=== PATIENT | male | born 1960 | race Caucasian/White ===

== ENCOUNTER → 2023-12-05 17:34 | Outpatient (REF) | payer OTHER, SELFPAY | LOC: RCS 17:34 | PROVIDERS: ATTENDING PHYSICIAN Physician Assistant; FAMILY PHYSICIAN Physician Assistant Medical | DX: I48.0 Paroxysmal atrial fibrillation (principal); I10 Essential (primary) hypertension; R06.09 Other forms of dyspnea | CPT/HCPCS: 93306 ==

== ENCOUNTER 2024-03-20 22:07 | Emergency (ER) | payer OTHER, SELFPAY ==
[2024-03-20 22:13] VITALS: BP 153/82
[2024-03-20 22:30] LABS: % Basophils 0.6 % (0-2); % Immature Granulocytes 0.2 % (0-0.5); % Lymphocytes 15.2 % (20.5-51.1); % Monocytes 7.4 % (1.7-9.3); % Neutrophils 75.6 % (42.2-75.2); Absolute Basophils 0.1 10^3/uL (0-0.2); Absolute Eosinophils 0.1 10^3/uL (0-0.7); Absolute Lymphocytes 1.3 10^3/uL (1.2-3.4); Absolute Monocytes 0.7 10^3/uL (0.1-0.6); Absolute Neutrophils 6.7 10^3/uL (1.4-6.5); Hematocrit 41.4 % (39.0-52.0); Hemoglobin 14.3 g/dL (13.0-18.0); Mean Corp Hgb Conc. 34.5 g/dL (33.0-37.0); Mean Corpuscular Volume 89.6 fL (80.0-94.0); Mean Platelet Volume 10.8 fL (7.4-10.4); Nucleated Red Blood Cells % 0 % (-); Platelet Count 166 10^3/uL (130-400); Red Blood Cell Count 4.62 10^6/uL (4.70-6.10); Red Cell Dist. Width 12.3 % (11.5-14.5); White Blood Cell Count 8.8 10^3/uL (4.8-10.8)
[2024-03-20 22:44] LABS: ALT (SGPT) 22 U/L (0-50); AST (SGOT) 27 U/L (17-59); Albumin 4.3 g/dl (3.5-5.0); Alkaline Phosphatase 88 U/L (38-126); Blood Urea Nitrogen 25 mg/dl (9-20); Calcium 9.4 mg/dl (8.4-10.2); Carbon Dioxide 30 mmol/L (22-30); Chloride 102 mmol/L (98-107); Glucose 121 mg/dl (70-99); Sodium 139 mmol/L (135-145); Total Bilirubin 1.2 mg/dl (0.2-1.3); Total Protein 6.8 g/dl (6.3-8.2); eGFR > 60.00
[2024-03-20 22:45] LABS: Lipase 136 U/L (23-300)
[2024-03-20 22:49] LABS: Urine Albumin Negative (Neg - Trace); Urine Bilirubin Negative (Negative); Urine Character Clear (Clear); Urine Color Yellow; Urine Glucose Negative (Negative); Urine Ketone Trace (Negative); Urine Leukocyte Trace (Negative); Urine Nitrite Negative (Negative); Urine Occult Blood Negative (Negative); Urine Specific Gravity 1.015 (<1.030); Urine Urobilinogen 1+ (Neg - 1+); Urine pH 6.5 (5.0-9.0)
[2024-03-20 23:04] LABS: Urine Mucus Few
[2024-03-20 23:05] LABS: Urine Bacteria Few (Negative)
[2024-03-20] MEDS: NSS 1000 IV (23:46)
--- NOTE | 2024-03-21 01:42 | ED.GENMED ---
History of Present Illness
General
Chief Complaint: Abdominal Pain
Source: patient
Exam Limitations: none
Time Seen by Provider: 03/20/24 22:57
History of Present Illness
History of Present Illness:
This is a 63 year old male that comes in with c/o left lower groin/LLQ pain. State that after dinner at 7pm he started with this pain in the left groin area. States that this was just not going away. States that he did have 2 BM when he got home
from work. States that the pain does move down slightly into the testicle. States that he was nauseated. Denies any fever, chills, chest pain, SOB, vomiting, diarrhea, headache, dizziness, urinary burning.
Past History
Past History
ED Past Medical History: Arrthythmia (Atrial fib), Hypercholesterolemia and Other (Back pain, Pancreatitis, )
ED Past Surgical History: Cardiac (Ablation), Orthopedic (Knee surgery) and Other (Hernia repair)
Social History
Tobacco: Non-smoker
Alcohol: None
Personal:
Living: with family
Review of Systems
Review of Systems
All Other Systems: ROS reviewed and negative except as documented in HPI and ROS
Constitutional: Reports no symptoms; Denies fever or chills
EENT: Reports no symptoms
Respiratory: Reports no symptoms; Denies cough or trouble breathing
Cardiac: Reports no symptoms; Denies chest pain
ABD/GI: Reports abdominal pain and nausea; Denies vomiting or diarrhea
: Reports no symptoms; Denies dysuria, frequency or urgency
Musculoskeletal: Reports no symptoms
Skin: Reports no symptoms
Neurological: Reports no symptoms; Denies dizzy or headache
Psychiatric: Reports no symptoms
Phy Exam
General Physical Exam
General Presentation: no apparent distress
General age: appears stated age
General Skin: warm and dry
General Habitus: normal
General Mental: alert
General Hydration: dry mucous membranes
ENT Exam
ENT Exam: TM's normal, pharynx normal and neck supple
Eye Exam
Eye Exam: EOMI
Cardiovascular Exam
Cardiovascular Exam: regular rate/rhythm, no edema, no murmur and normal peripheral pulses
Pulmonary Exam
Pulmonary Exam: lungs clear, no respiratory distress, no rales, chest non tender, no crackles, no rhonchi, no wheezing and no cough
Gastrointestinal Exam
Gastrointestinal Exam: normal bowel sounds, soft, no organomegaly, no pulsatile mass, non distended and tender (LLQ/ groin tenderness with palpation, )
Musculoskeletal Exam
Musculoskeletal Exam: full ROM and no edema
Skin Exam
Skin Exam: normal color, warm/dry, no rash and no petechia
Psychiatric Exam
Psychiatric Exam: normal mood/affect
Course
Orders/Labs/Results
Orders:
Orders
03/20/24 22:24
Complete Blood Count/With Diff Urgent
Comprehensive Metabolic Panel Urgent
Lipase Urgent
03/20/24 22:45
Urinalysis Reflex To Culture Urgent
Date Specimen was Collected: 03/20/24
Time Specimen was Collected: 22:18
Urine Microscopic Reflex Cult Urgent
03/20/24 23:31
0.9% Sodium Chloride 1000 ml [Nss] 1,000 ml IV BOLUS
03/20/24 23:46
Lactic Acid Urgent
03/21/24 01:15
CT Abd/pelvis W Iv Cont Urgent
Reason For Exam: left groin pain
Abnormal Lab Results
03/20/24 03/20/24
22:24 22:45
RBC 4.62 L 10^6/uL
(4.70-6.10)
MPV 10.8 H fL
(7.4-10.4)
Absolute Neuts (auto) 6.7 H 10^3/uL
(1.4-6.5)
Absolute Monos (auto) 0.7 H 10^3/uL
(0.1-0.6)
Neutrophils % 75.6 H %
(42.2-75.2)
Lymphocytes % 15.2 L %
(20.5-51.1)
BUN 25 H mg/dl
(9-20)
Glucose 121 H mg/dl
(70-99)
Urine Ketones Trace A
(Negative)
Leukocyte Esterase Rfl Trace A
(Negative)
Urine RBC 7-10 A /HPF
(0-2)
Urine Bacteria (Reflex) Few A
(Negative)
03/20/24 22:24
03/20/24 22:24
Dehydration. Glucose nonfasting. Urine negative for infection. Lipase normal at 136
Vital Signs
Initial and Last Documented VS:
Initial Vital Signs
Temp Pulse Resp BP Pulse Ox
98.0 F 55 19 153/82 99
03/20/24 22:13 03/20/24 22:13 03/20/24 22:13 03/20/24 22:13 03/20/24 22:13
Last Documented Vital Signs
Temp Pulse Resp BP Pulse Ox
98.0 F 55 19 153/82 99
03/20/24 22:13 03/20/24 22:13 03/20/24 22:13 03/20/24 22:13 03/20/24 22:13
MDM/Problems Addressed
Differential Diagnosis Includes:
Hernia, Renal calculus,
MDM/Problems Addressed:
This is a 63 year old male that comes in with c/o left lower abd/groin pain. States that this started after dinner and was not going away.
Will get labs and CT scan.
Back into see patient. Explained that his blood work show Dehydrated. Your CT shows that you have a small left inguinal hernia that is only fluid filled. The pancreatic duct is enlarged and will need further evaluaiton with ERCP or MRCP. There is
also air-fluid levels in the bowel which would be an underlying Enteritis. Patient to follow up with the family doctor. Return with any concerns.
Chronic conditions affecting care: Previous abdomnial surgery
Acute Exacerbation and/or Progression of Chronic Illness: Previous abdomnial surgery
*Radiology
Radiology exam reviewed: radiology read reviewed (CT Night hawk- Scattered air-filled levels and small bowel wall hyperenhancement, likely represents underlying enteritis. Small left inguinal hernia containing fluid without suspicious featuers. No
bowel obstruction. Normal gallbladder and appendix. Enlarged pancreatic duct measuring up to 9mm. ) and other (CT cont- Recommend ERCP or MRCP for the evaluation of central obstructing Lesion. Incidentals: Moderate stool burden. No obstructive
uropathy. No hepatic or pancreatic mass. No abdominal aortic aneurysm. No acute osseous abnormality. No acute abnormality within the visualized lungs. )
*Pulse Oximetry
Patient hypoxic: no
*EKG
Interpreted by ED Provider?: NA
Rate: EKG- N/A
*Security Software Engineer Interpretation
Rate: Security Software Engineer- N/A
*Critical Care Note
Total Time (30-74mins, 75-104mins- exclusive of procedures): Not Applicable
ED Attending Note
-
Portions of this chart may have been created with voice recognition software.� Occasional wrong word or��sound alike� substitutions may have occurred due to the inherent limitations of voice recognition software.
Discharge Plan
Departure
Patient Disposition: Home (Routine Discharge)
Date of Disposition: 03/21/24
Time of Disposition: 01:55
Patient with high blood pressure during this ER visit?: Yes
Condition: Good
Covid-19: Not Applicable
Discharge Problem:
Left lower quadrant abdominal pain, Hernia, inguinal, left
Instructions: Abdominal Hernia, BLOOD PRESSURE
Prescriptions:
No Action
cyclobenzaprine 10 MG tablet
10 mg PO TIDPRN PRN (Reason: spasm) Qty: 12 0RF
metoprolol succinate 25 MG tablet extended release 24 hr
25 mg PO DAILY
rivaroxaban [Xarelto] 20 MG tablet
20 mg PO QPM
ascorbic acid (vitamin C) [Vitamin C] 500 MG tablet
1,000 mg PO DAILY
[id number]-bnoyxj [[employer]] 1 EACH tablet
1 tab PO DAILY
atorvastatin 40 MG tablet
40 mg PO QPM
Referrals:
Ezequiel Walton PA-C [Family Provider] - Call in 1-3 days for appt
Activity Restrictions/Additional Instructions:
As discussed, your blood work shows dehydration. Your CT shows that there is a left groin hernia that is only fluid filled. There is also some enteritis of the bowel noted. You may have diarrhea from this. Please increase your water intake to 8-8oz
glasses daily. Follow up with the family doctor or if your discomfort continues you will need to see the General Surgeon. IF YOU HAVE FEVER, INCREASED OR CHANGING PAIN, OR YOU HAVE ANY OTHER CONCERNS PLEASE RETURN TO THE EMERGENCY ROOM.
Interventions
Interventions:
*Risk Screen - Suicide Last Done: 03/21/24 01:06
*General Assessment Last Done: 03/20/24 22:13
*Neglect/Abuse Screening Last Done: 03/20/24 22:13
ED- Fall Risk Assessment Last Done: 03/21/24 01:06
*ED COVID-19 Vaccine History Last Done: 03/21/24 01:06
GT-Xfefuf-Djmqzjjfhd Assessment Last Done: 03/20/24 23:40
Discharge Date and Time
Print Language: KHMER
[2024-03-21 02:04] VITALS: BP 124/71
== END 2024-03-21 02:13 | disposition home or self-care (01) ==
LOC: EMR 22:07
PROVIDERS: Clinical Nurse Specialist Family Health; Emergency Medicine; EMERGENCY PHYSICIAN Student in an Organized Health Care Education/Training Program; FAMILY PHYSICIAN Physician Assistant Medical
DX: R10.32 Left lower quadrant pain (principal); K40.90 Unilateral inguinal hernia, without obstruction or gangrene, not specified as recurrent; I48.91 Unspecified atrial fibrillation; E78.00 Pure hypercholesterolemia, unspecified
CPT/HCPCS: 99284; 96374; 74177; 80053; 81003; 81015; 83605; 83690; 85025; Q9967

== ENCOUNTER → 2024-06-20 16:52 | Outpatient (REF) | payer OTHER, SELFPAY | LOC: RAD 16:52 | PROVIDERS: ATTENDING PHYSICIAN Surgery; FAMILY PHYSICIAN Physician Assistant Medical | DX: R18.8 Other ascites (principal) | CPT/HCPCS: 74177; Q9967 ==

== ENCOUNTER 2024-08-01 06:18 | Day surgery (SDC) | payer BC, SELFPAY | END 2024-08-01 15:38 | disposition home or self-care (01) | LOC: GI 06:18 | PROVIDERS: ATTENDING PHYSICIAN Specialist | DX: Z12.11 Encounter for screening for malignant neoplasm of colon (principal); K57.30 Diverticulosis of large intestine without perforation or abscess without bleeding; D12.3 Benign neoplasm of transverse colon | CPT/HCPCS: 45380; 88305 ==

== ENCOUNTER → 2024-08-04 14:41 | Outpatient (REF) | payer BC, SELFPAY | LOC: MRI 3T 14:41 | PROVIDERS: ATTENDING PHYSICIAN Specialist; FAMILY PHYSICIAN Physician Assistant Medical | DX: R93.5 Abnormal findings on diagnostic imaging of other abdominal regions, including retroperitoneum (principal) | CPT/HCPCS: 74183; A9575 ==

== ENCOUNTER → 2024-11-28 15:28 | Outpatient (REF) | payer BC, SELFPAY | LOC: HWRAD 15:28 | PROVIDERS: ATTENDING PHYSICIAN Physician Assistant Medical | DX: E78.2 Mixed hyperlipidemia (principal); G89.29 Other chronic pain; M54.41 Lumbago with sciatica, right side | CPT/HCPCS: 72110 ==

== ENCOUNTER 2025-01-16 06:17 | Day surgery (SDC) | payer BC, SELFPAY ==
[2025-01-16 10:48] VITALS: BMI 22.3
[2025-01-16 10:49] VITALS: BMI 22.3
[2025-01-16 10:51] VITALS: BP 118/72
[2025-01-16 14:22] VITALS: BP 98/62
[2025-01-16 14:30] VITALS: BP 92/61
[2025-01-16 14:45] VITALS: BP 103/65
== END 2025-01-16 15:26 | disposition home or self-care (01) ==
LOC: SDS 06:17
PROVIDERS: ATTENDING PHYSICIAN Internal Medicine Gastroenterology
DX: K86.89 Other specified diseases of pancreas (principal); K57.10 Diverticulosis of small intestine without perforation or abscess without bleeding; R93.3 Abnormal findings on diagnostic imaging of other parts of digestive tract; Z87.19 Personal history of other diseases of the digestive system; Z79.01 Long term (current) use of anticoagulants
CPT/HCPCS: 43237

== ENCOUNTER → 2025-03-06 16:43 | Outpatient (REF) | payer BC, SELFPAY | LOC: RAD 16:43 | PROVIDERS: ATTENDING PHYSICIAN Nurse Practitioner Adult Health; FAMILY PHYSICIAN Physician Assistant Medical | DX: K86.89 Other specified diseases of pancreas (principal) | CPT/HCPCS: 74170; Q9967 ==

== ENCOUNTER → 2025-04-17 14:11 | Outpatient (REF) | payer BC, SELFPAY | LOC: RAD 14:11 | PROVIDERS: ATTENDING PHYSICIAN Specialist; FAMILY PHYSICIAN Physician Assistant Medical | DX: T15.10XA Foreign body in conjunctival sac, unspecified eye, initial encounter (principal) | CPT/HCPCS: 70030 ==

== ENCOUNTER 2025-06-15 15:28 | Inpatient (IN) | payer BC, SELFPAY ==
[2025-06-15 10:25] VITALS: BP 125/78
--- NOTE | 2025-06-15 11:20 | ED.GENMED ---
History of Present Illness
<Latia Knapp PA-C - Last Filed: 06/18/25 14:05>
General
Chief Complaint: Abdominal Pain
Source: patient
Exam Limitations: none
Time Seen by Provider: 06/15/25 11:10
Nursing documentation reviewed up to this point in time: agreed with
History of Present Illness
History of Present Illness:
see MDM
Past History
<Latia Knapp PA-C - Last Filed: 06/18/25 14:05>
Past History
ED Past Medical History: Arrthythmia (Atrial fib), Hypercholesterolemia and Other (Back pain, Pancreatitis, )
ED Past Surgical History: Cardiac (Ablation), Orthopedic (Knee surgery) and Other (Hernia repair)
Social History
Tobacco: Non-smoker
Alcohol: None
Personal:
Living: with family
Review of Systems
<Latia Knapp PA-C - Last Filed: 06/18/25 14:05>
Review of Systems
Allergies reviewed?: Yes
All Other Systems: Not applicable
Phy Exam
<Latia Knapp PA-C - Last Filed: 06/18/25 14:05>
Physical Exam
Physical Exam:
GENERAL: Alert , in no apparent distress
EYE: pupils equal and reactive
NECK: Supple
ENT: o/p clr, mmm.
CARDIAC: Regular rate and rhythm .
LUNGS: Clear breath sounds bilaterally, no acute respiratory distress, no wheezes/rales/rhonchi
ABDOMEN: Soft, moderate left upper quadrant tenderness, mild guarding, no rebound, no cvat, normal bowel sounds
NEUROLOGICAL: Alert and oriented, no focal neuro deficits
SKIN: Warm and dry, skin intact.
MUSCULOSKELETAL: No edema, well perfused.
Shoulder right in a sling
PSYCH: Normal and appropriate interaction.
Course
<Latia Knapp PA-C - Last Filed: 06/18/25 14:05>
Orders/Labs/Results
Orders:
Orders
06/15/25 11:17
CT Abd/Pel (IV only)-DH only Urgent
Comment:
Reason For Exam: luq pain, h/o pancreatitis
HYDROmorphone [Dilaudid] 1 mg IV NOW STA
Lactated Ringers [Lr] 1,000 ml IV BOLUS
06/15/25 11:21
Complete Blood Count/With Diff Urgent
Comprehensive Metabolic Panel Urgent
Direct Bilirubin Urgent
Comment: ADD ON
LDH Urgent
Lipase Urgent
06/15/25 13:54
HYDROmorphone [Dilaudid] 1 mg IV NOW STA
06/15/25 13:59
Admit/Transfer Patient As Directed
Co-Sign Provider:
Level of Care: Inpatient admission
Assign to:: Medical/Surgical
Physician / Group: [facility]
Diagnosis: Pancreatitis
Reason for Hospitalization: IVFs, GI consult
Expected length of stay greater than two midnights?: Yes
ELOS- Estimated Length of Stay in days: 3
I certify the patient meets the requirements for IP care: Yes
06/15/25 14:01
PRN Pain Medication Management As Directed
May give lesser potent ordered pain med per pt: Yes
preference::
Protocol:: Medication orders for pain may be administered in a
manner that supports deferring to patient preference
when the pt is:
- Requesting an ordered lesser potent pain medication.
Least to most potent pain medications are defined
as: acetaminophen < NSAID < tramadol < opioids
(morphine, oxycodone, hydromorphone).
- Requesting a lesser dose of the same medication IF
ORDERED.
- Requesting a less intrusive route of administration
if both routes are prescribed by the provider (PO <
IV).
06/15/25 14:03
Code Status As Directed
Resuscitation Status: Full Code
06/15/25 16:36
0.9% Sodium Chloride 1000 ml [Nss] 1,000 ml IV 150 mls/hr
Acetaminophen [Tylenol] 650 mg PO Q4HPRN PRN
Dextrose 50%-Water [Dextrose 50% Syringe] 12.5 grams IV [id number] PRN
Glucagon [GlucaGen] 1 mg IM PRN PRN
Ondansetron Injectable [Zofran] 4 mg IV Q6HPRN PRN
06/15/25 16:36
GASTROINTESTINAL CONSULT Routine
Consulting Provider: Ramy Triana
Was physician already notified: Yes
Activity As Directed
Activity Level: Out of Bed-Early Mobility
Bedside Glucose Monitoring As Directed
Frequency: AC&HS
Additional Instructions:: Change to q6h if pt on TPN, tube feeding or not eating
I&O [Intake/ Output] As Directed
Frequency: q12h
Vital Signs As Directed
Frequency: Per unit guidelines
06/15/25 17:23
HYDROmorphone [Dilaudid] 0.5 mg IV Q3HPRN PRN
06/15/25 18:00
Atorvastatin [Lipitor] 40 mg PO QPM
Insulin Aspart Corrective Low [Novolog Flexpen-Low Resistance] See Protocol SC Q6
Metoprolol Xl [Toprol Xl] 25 mg PO QPM
Rivaroxaban [Xarelto] 20 mg PO QPM
Tamsulosin [Flomax] 0.4 mg PO QPM
Tolterodine Extended Release [Detrol LA] 2 mg PO QPM
06/16/25 07:22
Comprehensive Metabolic Panel IN AM
06/16/25 07:23
Complete Blood Count/No Diff IN AM
Glycohemoglobin (HgbA1c) IN AM
Abnormal Lab Results
06/15/25
11:21
WBC 11.5 H 10^3/uL
(4.8-10.8)
MPV 10.9 H fL
(7.4-10.4)
Absolute Neuts (auto) 9.3 H 10^3/uL
(1.4-6.5)
Absolute Lymphs (auto) 0.9 L 10^3/uL
(1.2-3.4)
Absolute Monos (auto) 1.1 H 10^3/uL
(0.1-0.6)
Neutrophils % 81.0 H %
(42.2-75.2)
Lymphocytes % 7.7 L %
(20.5-51.1)
Monocytes % 9.6 H %
(1.7-9.3)
Carbon Dioxide 31 H mmol/L
(22-30)
Glucose 110 H mg/dl
(70-99)
Total Bilirubin 2.3 H mg/dl
(0.2-1.3)
Direct Bilirubin 0.5 H mg/dl
(0.0-0.4)
Lipase > 4000 H* U/L
(23-300)
06/15/25 11:21
06/15/25 11:21
Vital Signs
Initial and Last Documented VS:
Initial Vital Signs
Temp Pulse Resp BP Pulse Ox
36.9 C 83 18 125/78 98
06/15/25 10:25 06/15/25 10:25 06/15/25 10:25 06/15/25 10:25 06/15/25 10:25
Last Documented Vital Signs
Temp Pulse Resp BP Pulse Ox
37.1 C 85 18 127/75 96
06/18/25 07:00 06/18/25 07:00 06/18/25 07:00 06/18/25 07:00 06/18/25 07:00
<Raudel Saez MD - Last Filed: 06/15/25 13:32>
Orders/Labs/Results
Orders:
Orders
06/15/25 11:17
CT Abd/Pel (IV only)-DH only Urgent
Comment:
Reason For Exam: luq pain, h/o pancreatitis
HYDROmorphone [Dilaudid] 1 mg IV NOW STA
Lactated Ringers [Lr] 1,000 ml IV BOLUS
06/15/25 11:21
Complete Blood Count/With Diff Urgent
Comprehensive Metabolic Panel Urgent
Direct Bilirubin Urgent
Comment: ADD ON
LDH Urgent
Lipase Urgent
06/15/25 13:54
HYDROmorphone [Dilaudid] 1 mg IV NOW STA
06/15/25 13:59
Admit/Transfer Patient As Directed
Co-Sign Provider:
Level of Care: Inpatient admission
Assign to:: Medical/Surgical
Physician / Group: [facility]
Diagnosis: Pancreatitis
Reason for Hospitalization: IVFs, GI consult
Expected length of stay greater than two midnights?: Yes
ELOS- Estimated Length of Stay in days: 3
I certify the patient meets the requirements for IP care: Yes
06/15/25 14:01
PRN Pain Medication Management As Directed
May give lesser potent ordered pain med per pt: Yes
preference::
Protocol:: Medication orders for pain may be administered in a
manner that supports deferring to patient preference
when the pt is:
- Requesting an ordered lesser potent pain medication.
Least to most potent pain medications are defined
as: acetaminophen < NSAID < tramadol < opioids
(morphine, oxycodone, hydromorphone).
- Requesting a lesser dose of the same medication IF
ORDERED.
- Requesting a less intrusive route of administration
if both routes are prescribed by the provider (PO <
IV).
06/15/25 14:03
Code Status As Directed
Resuscitation Status: Full Code
06/15/25 16:36
0.9% Sodium Chloride 1000 ml [Nss] 1,000 ml IV 150 mls/hr
Acetaminophen [Tylenol] 650 mg PO Q4HPRN PRN
Dextrose 50%-Water [Dextrose 50% Syringe] 12.5 grams IV [id number] PRN
Glucagon [GlucaGen] 1 mg IM PRN PRN
Ondansetron Injectable [Zofran] 4 mg IV Q6HPRN PRN
06/15/25 16:36
GASTROINTESTINAL CONSULT Routine
Consulting Provider: Ramy Triana
Was physician already notified: Yes
Activity As Directed
Activity Level: Out of Bed-Early Mobility
Bedside Glucose Monitoring As Directed
Frequency: AC&HS
Additional Instructions:: Change to q6h if pt on TPN, tube feeding or not eating
I&O [Intake/ Output] As Directed
Frequency: q12h
Vital Signs As Directed
Frequency: Per unit guidelines
06/15/25 17:23
HYDROmorphone [Dilaudid] 0.5 mg IV Q3HPRN PRN
06/15/25 18:00
Atorvastatin [Lipitor] 40 mg PO QPM
Insulin Aspart Corrective Low [Novolog Flexpen-Low Resistance] See Protocol SC Q6
Metoprolol Xl [Toprol Xl] 25 mg PO QPM
Rivaroxaban [Xarelto] 20 mg PO QPM
Tamsulosin [Flomax] 0.4 mg PO QPM
Tolterodine Extended Release [Detrol LA] 2 mg PO QPM
06/16/25 07:22
Comprehensive Metabolic Panel IN AM
06/16/25 07:23
Complete Blood Count/No Diff IN AM
Glycohemoglobin (HgbA1c) IN AM
Abnormal Lab Results
06/15/25
11:21
WBC 11.5 H 10^3/uL
(4.8-10.8)
MPV 10.9 H fL
(7.4-10.4)
Absolute Neuts (auto) 9.3 H 10^3/uL
(1.4-6.5)
Absolute Lymphs (auto) 0.9 L 10^3/uL
(1.2-3.4)
Absolute Monos (auto) 1.1 H 10^3/uL
(0.1-0.6)
Neutrophils % 81.0 H %
(42.2-75.2)
Lymphocytes % 7.7 L %
(20.5-51.1)
Monocytes % 9.6 H %
(1.7-9.3)
Carbon Dioxide 31 H mmol/L
(22-30)
Glucose 110 H mg/dl
(70-99)
Total Bilirubin 2.3 H mg/dl
(0.2-1.3)
Direct Bilirubin 0.5 H mg/dl
(0.0-0.4)
Lipase > 4000 H* U/L
(23-300)
06/15/25 11:21
06/15/25 11:21
Vital Signs
Initial and Last Documented VS:
Initial Vital Signs
Temp Pulse Resp BP Pulse Ox
36.9 C 83 18 125/78 98
06/15/25 10:25 06/15/25 10:25 06/15/25 10:25 06/15/25 10:25 06/15/25 10:25
Last Documented Vital Signs
Temp Pulse Resp BP Pulse Ox
37.1 C 85 18 127/75 96
06/18/25 07:00 06/18/25 07:00 06/18/25 07:00 06/18/25 07:00 06/18/25 07:00
<Latia Knapp PA-C - Last Filed: 06/18/25 14:05>
MDM/Problems Addressed
Differential Diagnosis Includes:
see MDM
MDM/Problems Addressed:
Note:
CHIEF COMPLAINT(S)
Abdominal pain suggestive of pancreatitis recurrence.
HISTORY OF PRESENT ILLNESS
The patient is a 64-year-old male with a history of recurrent pancreatitis, presenting with abdominal pain similar to previous episodes of pancreatitis. The pain began two days ago in LUQ and has been severe, rating it 7 to 8 out of 10 on the pain
scale. The patient has previously (20 years ago) been treated for pancreatitis and was hospitalized almost a full month during a prior episode. He denies constipation, diarrhea, black stool, vomiting, fever, chills, chest pain, or shortness of
breath. The patient has not consumed alcohol for a long time, which suggests a non-alcoholic etiology. He did mention dehydration due to decreased fluid intake. The patient reports having undergone an upper endoscopy previously, which was normal,
except for a dilated pancreatic duct previously noted.
Patient had right shoulder surgery, rotator cuff repair [address] Mcghee. He was given oxycodone. The pharmacist question whether the pancreas flare could be due to the oxycodone.
PAST MEDICAL AND SURGICAL HISTORY
The patient reports prior hospitalization for pancreatitis and an upper endoscopy revealing a dilated pancreatic duct.
ALLERGIES
Penicillin.
REVIEW OF SYSTEMS
- Gastrointestinal: No constipation, diarrhea, or black stool. Significant abdominal pain.
- Constitutional: Denies fever or chills.
- Respiratory: Denies shortness of breath.
- Cardiovascular: Denies chest pain.
PHYSICAL EXAM
- Abdomen: Tenderness noted in the area corresponding to the pancreas.
Nursing notes reviewed and vital signs reviewed.
PLAN
1. Initiate intravenous access and draw blood for laboratory evaluation, including amylase and lipase levels, to assess for pancreatitis.
2. Perform abdominal imaging to further evaluate the pancreatic inflammation.
3. Provide IV fluids and pain management, including dilaudid for pain relief.
4. Monitor closely in a holding area while waiting for diagnostic results with the expectation of potential hospital admission for management.
DIFFERENTIAL DIAGNOSIS
The Differential Diagnosis includes, in no particular order and is not limited to:
1. Acute Pancreatitis
2. Cholecystitis
3. Peptic Ulcer Disease
4. Biliary Colic
5. Gastritis
6. Gastroesophageal Reflux Disease
7. Bowel Obstruction
8. Mesenteric Ischemia
9. Renal Colic
10. Abdominal Aortic Aneurysm
64 y/o M
h/o Idiopathic pancreatitis
recent shoulder surgery several days ago
LUQ pain with nausea, no vomiting, + anorexia; no fever
pt is uncomfortable, tender LUQ
lipase > 4000
ct shows findings c/w pancreatitis
requires admission
Lactated ringers
<Latia Knapp PA-C - Last Filed: 06/18/25 14:05>
*Pulse Oximetry
SaO2: 98
Oxygen Mode of Delivery: Room air
Patient hypoxic: no (96)
*Critical Care Note
Total Time (30-74mins, 75-104mins- exclusive of procedures): Not Applicable
ED Attending Note
<Latia Knapp PA-C - Last Filed: 06/18/25 14:05>
-
Portions of this chart may have been created with voice recognition software.� Occasional wrong word or��sound alike� substitutions may have occurred due to the inherent limitations of voice recognition software.
<Raudel Saez MD - Last Filed: 06/15/25 13:32>
ED Attending Note
Patient seen and examined by attending physician: Yes
ED Attending Note:
I have seen and evaluated the patient with a [id number] encounter. I have spoken to the advance practicer provider and involved in the medical history, the physical exam, medical decision making.
Evaluation and management service: agree unless noted differently below.
Results interpretation: agree unless noted differently below.
Focused HPI: 64-year-old male with history as noted presents to the ER for evaluation of abdominal pain. Patient notably had right shoulder surgery with Dr. Mcghee last week. He started taking oxycodone for his postoperative pain evening,
Sunday morning woke up with abdominal pain. Continued to take oxycodone Sunday and Sunday for postop pain but abdominal pains worsened over that period of time which prompted ER visit today. He has not had any vomiting. Still having bowel
movements. Very poor appetite. No fever or chills. No other acute complaints noted. He does report that he has a history of pancreatitis in the past that felt similar. He denies alcohol use.
Physical exam: Awake and alert not in distress. Vitals within acceptable range. Right shoulder sling in place. Abdomen soft, moderately tender in the epigastrium. Voluntary guarding.
Medical Decision Makin-year-old male presents for evaluation of abdominal pain after recent shoulder surgery. Similar to prior bouts of pancreatitis. Vitals and exam as above. Labs reviewed his CBC shows marginal leukocytosis, CMP shows T.
bili 2.3 increased from prior. Transaminases are normal. His lipase is markedly elevated greater than 4000. Overall suspect acute pancreatitis. CT confirms findings consistent with pancreatitis; he does have pancreatic ductal as well as biliary
ductal dilation on CT�will likely need follow-up MRCP. Given fluids, pain control. Admit for continued management.
Discharge Plan
Departure
Patient Disposition: Admit
Date of Disposition: 06/15/25
Time of Disposition: 13:26
Admit to: Med/Surg
Presentation/result/management discussed w/ accepting MD/DO: Hospitalist
Condition: Fair
Covid-19: Not Applicable
Discharge Problem:
Pancreatitis
Interventions
Interventions:
*Risk Screen - Suicide Last Done: 06/15/25 10:25
*General Assessment Last Done: 06/15/25 10:25
*Neglect/Abuse Screening Last Done: 06/15/25 10:25
*ED- Fall Risk Assessment Last Done: 06/15/25 11:39
*ED COVID-19 Vaccine History Last Done: 06/15/25 11:39
*ED Influenza Vaccine History Last Done: 06/15/25 11:39
*Nursing Disposition Last Done: 06/15/25 16:56
LW-Ulcokp-Laydjwpoeo Assessment Last Done: 06/15/25 11:22
Discharge Date and Time
Discharge Date/Time: 06/15/25 16:56
[2025-06-15 11:23] VITALS: BMI 22.1
[2025-06-15] MEDS: DILAUDID 1 MG IV ×4 (11:25→23:24)
[2025-06-15] MEDS: LR 1000 IV (11:37)
[2025-06-15 11:47] LABS: Hematocrit 43.5 % (39.0-52.0); Hemoglobin 14.7 g/dL (13.0-18.0); Mean Corp Hgb Conc. 33.8 g/dL (33.0-37.0); Mean Corpuscular Volume 90.8 fL (80.0-94.0); Nucleated Red Blood Cells % 0 % (-); Platelet Count 167 10^3/uL (130-400); Red Cell Dist. Width 12.1 % (11.5-14.5)
[2025-06-15 11:56] VITALS: BP 106/77
[2025-06-15 11:59] LABS: ALT (SGPT) 24 U/L (0-50); AST (SGOT) 22 U/L (17-59); Albumin 4.1 g/dl (3.5-5.0); Alkaline Phosphatase 81 U/L (38-126); Blood Urea Nitrogen 20 mg/dl (9-20); Calcium 9.3 mg/dl (8.4-10.2); Carbon Dioxide 31 mmol/L (22-30); Chloride 99 mmol/L (98-107); Estimated Creatinine Clearance 103 ml/min; Glucose 110 mg/dl (70-99); LDH 163 U/L (120-246); Potassium 4.9 mmol/L (3.5-5.1); Sodium 136 mmol/L (135-145); Total Protein 7.3 g/dl (6.3-8.2); eGFR > 60.00
[2025-06-15 12:44] LABS: Lipase > 4000 U/L (23-300)
--- NOTE | 2025-06-15 13:30 | HPS.HSE ---
Addendum entered and electronically signed by Shon Yadav MD 06/15/25 17:58:
Patient supposed to have sutures removed by Dr. Mcghee on Sunday. Will need this to be addressed by ortho.
Addendum entered and electronically signed by Shon Yadav MD 06/15/25 14:35:
This is an addendum to H&P written by Wendie Yousif on 06/15/2025. �Patient seen and examined independently with PA.
64-year-old male past medical history of pancreatitis episodes greater than 20 years ago, atrial fibrillation on Xarelto, hypertension, hypercholesteremia, prediabetic, BPH presenting with abdominal pain for 3 days.
Had rotator cuff surgery on the right 5 days ago and was started on oxycodone.
He recently had a endoscopic ultrasound in March with biopsy nonconcerning for malignancy.
Vital signs show normal vitals.
Labs show leukocytosis of 11. �Lipase greater than 4000. �Total bilirubin 2.3. �CT abdomen pelvis shows mild peripancreatic inflammatory changes suspicious for acute pancreatitis. �Pancreatic ductal dilatation extrahepatic biliary tract/common bile
duct seen previously. �Prior MRI of abdomen showed significant dilation of the main pancreatic duct extending into mid to inferior head of the pancreas, dilated sidebranch pancreatic ducts suggestive sequelae of prior pancreatitis probably or
stricture of junction of main pancreatic duct.
Patient with recurrent acute pancreatitis unclear etiology. �Likely secondary to oxycodone and Sphincter of Oddi spasm with known biliary stricture from prior episodes of pancreatitis. �N.p.o., IV fluids, pain control Dilaudid, GI.
Original Note:
Family Physician
-
Family Physician: Ezequiel Walton PA-C
Chief Complaint
-
Abdominal Pain
History of Present Illness
Patient is a 64 y/o male past medical history of A-fib on anticoagulation, pre-diabetes, hypertension, hyperlipidemia, BPH, and pancreatitis who presents with abdominal pain. Patient had right rotator cuff surgery 5 days ago. He started oxycodone
for shoulder pain the following day and subsequently developed epigastric pain on the next day, three days ago. He notes pain is similar to prior episodes of pancreatitis. He tried to manage at home by decreasing his oral intake but pain
persisted. He denies fevers, sweats or chills. He denies nausea, vomiting, diarrhea or constipation.
Medical History
Past Medical History
Past Medical History: Reports Other
Additional Past Medical History:
Paroxysmal Atrial Fibrillation
Pre-Diabetes
Essential Hypertension
Hyperlipidemia
BPH
Pancreatitis / Chronic Pancreatitis Duct Dilation, possible stricture
Past Surgical History: Reports Other
Additional Past Surgical History:
Right Rotator Cuff
Social History
Tobacco: Non-smoker
Alcohol: None
Family History
Family History: Not pertinent
Allergies / Home Medications
Allergies reflects when Allergies were last updated in [employer].
Home Medications with original date entered in [employer] [facility]
Allergy/Medication List:
Allergies
Allergy/AdvReac Type Severity Reaction Status Date / Time
Penicillins Allergy Severe Rash Verified 06/15/25 10:25
Home Medications
ascorbic acid (vitamin C) 500 mg tablet (Vitamin C) 1,000 mg PO DAILY 05/23/17
metoprolol succinate 25 mg tablet,extended release 24 hr 25 mg PO QPM 05/23/17
rivaroxaban 20 mg tablet (Xarelto) 20 mg PO QPM 05/23/17
atorvastatin 40 mg tablet 40 mg PO QPM 05/25/17
solifenacin 5 mg tablet 5 mg PO QPM 01/16/25
tamsulosin 0.4 mg capsule 0.4 mg PO QPM 01/16/25
acetaminophen 500 mg tablet (Tylenol Extra Strength) 500 mg PO Q6HPRN PRN mild pain 06/15/25
therapeutic multivitamin 1 tab PO DAILY 06/15/25
turmeric 400 mg capsule 400 mg PO QPM 06/15/25
Review of Systems
-
A 12 point ROS was completed and negative except as noted: Yes
Constitutional: Denies Fever
Respiratory: Denies Cough or Trouble Breathing
Cardiac: Denies Chest Pain or Palpitations
Abdomen/GI: Reports See HPI
Physical Exam
Vital Signs
Vital Signs
Temp Pulse Resp BP Pulse Ox
98.4 F 76 18 106/77 100
06/15/25 10:25 06/15/25 11:56 06/15/25 11:56 06/15/25 11:56 06/15/25 11:56
Physical Exam
General: Comfortable and Conversant
HEENT: Anicteric and Moist mucous membranes
Respiratory: Clear and Non Labored Respirations
Cardiac: S1/S2 and Regular Rhythm
GI: Soft and Tender (Epigastric region with some voluntary guarding)
Rectal: Deferred by Provider
Musculoskeletal: No Clubbing, No Cyanosis, No Edema and Other (Right Upper Ext in Sling)
Skin: Warm and Dry
Neuro: Awake, Alert, Oriented and Nonfocal/grossly intact
Psych: Calm
Laboratory Results
-
06/15/25 11:21
06/15/25 11:21
Laboratory Results
Total Bilirubin 2.3 mg/dl (0.2-1.3) H 06/15/25 11:21
AST 22 U/L (17-59) 06/15/25 11:21
ALT 24 U/L (0-50) 06/15/25 11:21
Alkaline Phosphatase 81 U/L (38-126) 06/15/25 11:21
Lipase > 4000 U/L (23-300) H* 06/15/25 11:21
Data Reviewed
-
CT Scan: Report Reviewed by me
Lab Data: Labs Reviewed by me
Impression/Plan
-
Acute Pancreatis
-Possibly triggered by biliary spasms due to recent oxycodone
-Consult GI
-Continue NPO/IVFs
-Continue Dilaudid for pain
-Trend Bilirubin
Paroxysmal Atrial Fibrillation
-Continue Xarelto for anticoagulation
-Continue Metoprolol for rate control
Pre-Diabetes
-Check HgbA1c
-Monitor sugars and continue coverage insulin
Hyperlipidemia
-Continue atorvastatin
BPH
-Continue tamsulosin
DVT proph: Xarelto
Code Status: Full Code
[2025-06-15 14:08] VITALS: BP 113/71
--- NOTE | 2025-06-15 15:07 | CON.GI ---
Addendum entered and electronically signed by Ramy Triana MD 06/15/25 17:48:
The patient was seen and examined by me independently in collaboration with the nurse practitioner.
Past medical history/social history/medications/allergies/family history reviewed.
Lab data and imaging data reviewed.
64-year-old male past medical history of recurrent pancreatitis followed with Dr. Feliz. Dr. Feliz recently did an EUS was concerned about an IPMN for him to [facility] who felt they he did not have an IPMN. Dr. Feliz's thought that
perhaps the IPMN was causing the recurrent pancreatitis. Patient now presenting with another episode of acute pancreatitis after recent shoulder surgery. Only medications that were new were Tylenol and oxycodone. Imaging and lipase consistent
with pancreatitis as well as having abdominal pain. He also was found to have pancreatic stricture but this is chronic known from prior as well as elevated bilirubin but no direct bilirubin checked and other LFTs are normal. For now, recommend
conservative management of pancreatitis with n.p.o., IV fluids, pain control. Monitor labs. I discussed with Dr. Feliz. I also sent a message to the hospitalist patient is asking for orthopedics to see him as he needs to have his sutures removed on
Sunday with Dr. Mcghee or his PA. GI will follow.
Addendum entered and electronically signed by JORDY Addison 06/15/25 17:07:
reviewed 04/06/25- Dr. Raquel Calles
- Normal esophagus.
� � � � � � � � � � � �- Normal stomach.
� � � � � � � � � � � �- Duodenal diverticulum.
� � � � � � � � � � � �- The pancreatic duct had a dilated endosonographic
� � � � � � � � � � � �appearance in the entire pancreas. The pancreatic duct
� � � � � � � � � � � �measured up to 9 mm in diameter. no masses, parenchymal abnormality, nodules or stones
� � � � � � � � � � � �- The pancreas was otherwise normal appearing.
� � � � � � � � � � � �- No specimens collected.
Original Note:
Consultation
-
Date/Time Consultation Requested: 06/15/25 1400
Date/Time Consultation Performed: 06/15/25 1500
Requesting Provider: Wendie Germain PA-C
Performing Provider: JORDY De La Vega, Olivia Triana MD
Reason for Consultation: pancreatititis
Medical History
Chief Complaint / HPI
Chief Complaint: abdominal pain
History of Present Illness:
Pt is a 64yo with hx PAF on Xarelto, basal cell CA, CVA, HTN, hyperlipidemia, visual loss, prior hernia repair, and prior pancreatitis. He had bouts of pancreatitis at age 20 then 30 and age 43. During bout in about 2004 when he was followed by
Dr. Connelly at [place]. There was concern biliary stricture with ERCP with complications requiring admission. Pt was well for many years after intervention. In review of chart pt was seen in ER in 2023 for groin pain and noted abnormal CT
with dilated pancreatic duct and air in gallbladder with suspected prior gastropancreatic stent and hx cyst in that area in 2024. He had follow up with Dr. Ordaz and sent to Dr. Feliz for evaluation with several follow up CT and MRI completed. He
had further follow up with Dr. Feliz in 2024. He proceeded to EUS 01/16/25 with duodenal diverticulum, dilated pancreatic duct in panc head, genu, body and tail of pancreas with panc duct up to 10mm with hyperechoic foci in panc head and body no
pathology in CBD or liver and patulous ampulla with possible mucin extrusion. He was then referred to Dr. García and Jeffery Feliz at [place]. He completed CT in February with stable pancreatic ductal dilatation and few para aortic calcifications
suggesting chronic pancreatitis with pancreatic tail atrophy and mild stool burden. He now had shoulder surgery with Dr. Mcghee 5 days ago with Oxycodone use and now presents with concern for pancreatitis.
In review with patient surgery was 06/10 then he began with pain on 06/12. He tried to stay at home but pain was severe and presents 06/15 for evaluation. On admission CT noted with mild peripancreatic inflammatory changes concern for acute
pancreatitis with WBC 11,500, with bili 2.3 otherwise normal LFT's, and lipase >4000. He describes pain as severe in upper abdomen but improved from pain medication on admission. He denies dysphagia, GERD, nausea, vomiting, diarrhea,
constipation, blood or black in stools. Pt denies any other new medication other than recent Oxycodone taken post-op.
Past Medical History
Past Medical History: Arrhythmias (PAF), Cancer (basal cell CA), CVA (TIA), HTN, Hypercholesterolemia and Other (visual loss, pancreatitis several bouts since age 20, pancreatic duct dilation, EUS with patulous ampulla)
Past Surgical History: Cardiac (ablation ), Orthopedic (rotator cuff ) and Other (hernia repair)
Social History
Tobacco: Non-Smoker
Alcohol: None
Drug: None
Personal:
Living: With Family
Employment: Retired (last week )
Family History
Family History: Other (sister with cancer at age 30 and at 57. Mother with ovarian cancer)
Allergies / Home Medications
Allergy/AdvReac Type Severity Reaction Status Date / Time
Penicillins Allergy Severe Rash Verified 06/15/25 10:25
�Medication �Instructions �Recorded
ascorbic acid (vitamin C) 500 mg 1,000 mg PO DAILY 05/23/17
tablet (Vitamin C)
metoprolol succinate 25 mg 25 mg PO QPM 05/23/17
tablet,extended release 24 hr
rivaroxaban 20 mg tablet (Xarelto) 20 mg PO QPM 05/23/17
atorvastatin 40 mg tablet 40 mg PO QPM 05/25/17
solifenacin 5 mg tablet 5 mg PO QPM 01/16/25
tamsulosin 0.4 mg capsule 0.4 mg PO QPM 01/16/25
acetaminophen 500 mg tablet 500 mg PO Q6HPRN PRN mild pain 06/15/25
(Tylenol Extra Strength)
therapeutic multivitamin 1 tab PO DAILY 06/15/25
turmeric 400 mg capsule 400 mg PO QPM 06/15/25
Review of Systems
-
History Source: Patient
Constitutional: Reports No Symptoms
EENT: Reports No Symptoms
Respiratory: Reports No Symptoms
Cardiac: Reports No Symptoms
Abdomen/GI: Reports Abdominal Pain and Nausea
: Reports No Symptoms
Musculoskeletal: Reports Other (shoulder pain with recent surgery )
Skin: Reports No Symptoms
Neurological: Reports Weakness
Endocrine: Reports No Symptoms
Hematologic/Lymphatic: Reports No Symptoms
Vital Signs
Temp Pulse Resp BP Pulse Ox
98.4 F 80 16 113/71 96
06/15/25 10:25 06/15/25 14:08 06/15/25 14:08 06/15/25 14:08 06/15/25 14:08
Physical Exam
Exam
General: Well Developed, Well Nourished and No Apparent Distress (calm with recent pain meds )
HEENT: Normocephalic and Anicteric
Respiratory: Clear
Cardiac: Regular Rhythm
GI: Soft, Non Distended and Tender (upper abdominal tenderness )
Musculoskeletal: No Clubbing, No Cyanosis and Other (right arm in sling )
Skin: Warm and Dry
Neuro: Awake and AO x 3
Psych: Calm
Results
WBC 11.5 10^3/uL (4.8-10.8) H 06/15/25 11:21
Hgb 14.7 g/dL (13.0-18.0) 06/15/25 11:21
Hct 43.5 % (39.0-52.0) 06/15/25 11:21
MCV 90.8 fL (80.0-94.0) 06/15/25 11:21
Plt Count 167 10^3/uL (130-400) 06/15/25 11:21
Absolute Neuts (auto) 9.3 10^3/uL (1.4-6.5) H 06/15/25 11:21
Sodium 136 mmol/L (135-145) 06/15/25 11:21
Potassium 4.9 mmol/L (3.5-5.1) 06/15/25 11:21
Chloride 99 mmol/L (98-107) 06/15/25 11:21
Carbon Dioxide 31 mmol/L (22-30) H 06/15/25 11:21
BUN 20 mg/dl (9-20) 06/15/25 11:21
Creatinine 0.7 mg/dL (0.7-1.3) 06/15/25 11:21
Calcium 9.3 mg/dl (8.4-10.2) 06/15/25 11:21
Total Bilirubin 2.3 mg/dl (0.2-1.3) H 06/15/25 11:21
AST 22 U/L (17-59) 06/15/25 11:21
ALT 24 U/L (0-50) 06/15/25 11:21
Alkaline Phosphatase 81 U/L (38-126) 06/15/25 11:21
Lipase > 4000 U/L (23-300) H* 06/15/25 11:21
Diagnostic Image Results:
06/15/25 CT Abd/Pel (IV only)-DH only
Mild peripancreatic inflammatory changes suspicious for acute pancreatitis.
Pancreatic ductal dilatation and extrahepatic biliary tract/common bile duct dilatation again seen in comparison to most recent prior Abdomen CT. Consider MRI/MRCP for more complete evaluation.
Small left-sided urinary bladder diverticulum.
03/09/25 CT A/p with and without contrast
IMPRESSION: Stable pancreatic ductal dilatation.
Few tiny para-aortic calcifications suggesting chronic pancreatitis. Stable.
Pancreatic tail atrophy. Stable.
Mild fecal material in the colon. Improved
07/2024 MR Abdomen W/o & W Contrast
IMPRESSION: Normal appearance of the gallbladder. No evidence for biliary ductal dilation. No evidence for bile duct calculus.
There is significant dilation of the main pancreatic duct, extending into the mid to inferior head of the pancreas. Within the head of the pancreas, there are also dilated side branch pancreatic ducts both superiorly and inferiorly. Findings are
most suggestive of sequela of previous pancreatitis, probably with stricture of junction of main pancreatic duct with side branch pancreatic duct within the head of the pancreas.
No convincing evidence for pancreatic mass lesion on MRI or recent CT examinations.
Focus of decreased signal intensity within the main pancreatic duct within the superior to the pancreas. Correlating with prior CT examination, this is probably air within the pancreatic duct. This may be from previous instrumentation. Another
possibility would be air introduced from a diverticulum arising from the second portion of the duodenum.
As warranted, consideration for further evaluation with endoscopic ultrasound and/or ERCP.
03/2025- Dr. Raquel Calles-- report not reviewed stable per patient
01/16/25 EUS Deonte Feliz MD - Normal esophagus.
- No gross lesions in the entire stomach.
- Duodenal diverticulum.
- The pancreatic duct had a dilated endosonographic
appearance in the pancreatic head, genu of the
pancreas, body of the pancreas and tail of the
pancreas. The pancreatic duct measured up to 10 mm in
diameter.
- Pancreatic parenchymal abnormalities consisting of
hyperechoic foci were noted in the pancreatic head and
pancreatic body.
- There was no sign of significant pathology in the
common bile duct.
- There was no evidence of significant pathology in
the left lobe of the liver.
- Patulous ampulla with possible mucin extrusion.
- No specimens collected.
07/2024 [facility] colonoscopy
- Two diminutive polyps in the transverse colon and at
the hepatic flexure, removed with a jumbo cold
forceps. Resected and retrieved.
- Diverticulosis in the sigmoid colon, in the
descending colon and in the ascending colon.
Assessment / Plan
-
Pt is a 64yo with hx PAF on Xarelto, basal cell CA, CVA, HTN, hyperlipidemia, visual loss, prior hernia repair, and prior pancreatitis. He had bouts of pancreatitis at age 20 then 30 and age 43. During bout in about 2004 when he was followed by
Dr. Connelly at [place]. There was concern biliary stricture with ERCP with complications requiring admission. Pt was well for many years after intervention. In review of chart pt was seen in ER in 2023 for groin pain and noted abnormal CT
with dilated pancreatic duct and air in gallbladder with suspected prior gastropancreatic stent and hx cyst in that area in 2024. He had follow up with Dr. Ordaz and sent to Dr. Feliz for evaluation with several follow up CT and MRI completed. He
had further follow up with Dr. Feliz in 2024. He proceeded to EUS 01/16/25 with duodenal diverticulum, dilated pancreatic duct in panc head, genu, body and tail of pancreas with panc duct up to 10mm with hyperechoic foci in panc head and body no
pathology in CBD or liver and patulous ampulla with possible mucin extrusion. He was then referred to Dr. García and Jeffery Feliz at [place]. He completed CT in February with stable pancreatic ductal dilatation and few para aortic calcifications
suggesting chronic pancreatitis with pancreatic tail atrophy and mild stool burden. He now had shoulder surgery with Dr. Mcghee 5 days ago with Oxycodone use and now presents with concern for pancreatitis.
-pancreatitis
-mild bili elevation of 2.3
-hx prior pancreatitis age [age] and 43 [address] Connelly with post procedure pancreatitis
-recent EUS x 2 for pancreatic duct dilation
-s/p shoulder surgery 06/10 with narcotic use
other med problems:
-PAF on Xarelto
-basal cell CA
- CVA
- HTN
-hyperlipidemia
- visual loss
-prior hernia repair
PLAN:
etiology of pancreatitis related to prior noted pancreatic ductal dilatation, patient concern for Oxycodone use but not listed in up to date vs other
CT as noted
agree with aggressive IVF
pain control
will try to obtain most recent EUS
NPO advance diet tolerated ok for sips and ice chips
will review with Dr. Triana any need for further imaging
-
-
Thank you for consultation and allowing me to participate in the patient's care. Please call the addiction therapist GI physician during the after hours with any questions or concerns.
[2025-06-15 16:35] VITALS: BMI 22.0
[2025-06-15 16:42] VITALS: BP 129/74
[2025-06-15 16:59] VITALS: BMI 22.0
[2025-06-15] MEDS: NSS 1000 IV (17:24)
[2025-06-15] MEDS: DILAUDID 0.5 MG IV (17:39)
[2025-06-15] MEDS: XARELTO 20 MG PO (17:55)
[2025-06-15] MEDS: TOPROL XL 25 MG PO (17:55)
[2025-06-15] MEDS: FLOMAX 0.4 MG PO (17:55)
[2025-06-15] MEDS: DETROL LA 2 MG PO (17:56)
[2025-06-15] MEDS: LIPITOR 40 MG PO (17:56)
[2025-06-15] MEDS: DEXTROSE 50% SYRINGE 12.5 GRAMS IV (18:45)
[2025-06-15 18:47] LABS: Glucose - Point of Care 68 mg/dl (70-99)
[2025-06-15 19:06] LABS: Glucose - Point of Care 154 mg/dl (70-99)
[2025-06-15 23:00] VITALS: BP 141/83
[2025-06-15 23:59] LABS: Glucose - Point of Care 74 mg/dl (70-99)
[2025-06-16] MEDS: NSS 1000 IV ×4 (00:38→20:19)
[2025-06-16 03:01] LABS: Glucose - Point of Care 94 mg/dl (70-99)
[2025-06-16] MEDS: DILAUDID 1 MG IV ×7 (03:05→22:50)
[2025-06-16 06:30] LABS: Glucose - Point of Care 89 mg/dl (70-99)
[2025-06-16 07:45] VITALS: BP 126/73
[2025-06-16 08:09] LABS: Hematocrit 39.4 % (39.0-52.0); Hemoglobin 13.1 g/dL (13.0-18.0); Mean Corp Hgb Conc. 33.2 g/dL (33.0-37.0); Mean Corpuscular Volume 91.6 fL (80.0-94.0); Platelet Count 148 10^3/uL (130-400); Red Cell Dist. Width 11.9 % (11.5-14.5)
[2025-06-16 08:54] LABS: ALT (SGPT) 17 U/L (0-50); AST (SGOT) 17 U/L (17-59); Albumin 3.2 g/dl (3.5-5.0); Alkaline Phosphatase 65 U/L (38-126); Blood Urea Nitrogen 14 mg/dl (9-20); Calcium 8.0 mg/dl (8.4-10.2); Carbon Dioxide 29 mmol/L (22-30); Chloride 103 mmol/L (98-107); Estimated Creatinine Clearance 119 ml/min; Glucose 77 mg/dl (70-99); Potassium 4.0 mmol/L (3.5-5.1); Sodium 135 mmol/L (135-145); Total Protein 5.7 g/dl (6.3-8.2); eGFR > 60.00
--- NOTE | 2025-06-16 09:41 | W.PN.HOSP.TC ---
Today's Communication/Plan
-
see bold
Assessment / Plan
Assessment / Plan
HPI: 64 y/o male past medical history of A-fib on anticoagulation, pre-diabetes, hypertension, hyperlipidemia, BPH, and pancreatitis who presents with abdominal pain. Patient had right rotator cuff surgery 5 days ago. He started oxycodone for
shoulder pain the following day and subsequently developed epigastric pain on the next day, three days ago. He notes pain is similar to prior episodes of pancreatitis. He tried to manage at home by decreasing his oral intake but pain persisted.
He denies fevers, sweats or chills. He denies nausea, vomiting, diarrhea or constipation.
Assessment/plan:
Acute Recurrent Pancreatitis
-Possibly triggered by biliary spasms due to recent oxycodone
-Appreciate GI input, continue NPO/IVFs
-Continue Dilaudid for pain
-Trend Bilirubin
Recent right shoulder surgery
-Texted orthopedic surgery to see if patient can have his sutures removed tomorrow
Paroxysmal Atrial Fibrillation
-Continue Xarelto for anticoagulation
-Continue Metoprolol for rate control
Pre-Diabetes
-HgbA1c 6.2
-Monitor sugars and continue coverage insulin
Hyperlipidemia
-Continue atorvastatin
BPH
-Continue tamsulosin
DVT proph: Xarelto
Code Status: Full Code
Total time spent to see the patient on the floor, examine the patient, review data and lab results, discuss treatment plan with patient, nursing staff around 38 minutes.
Physical Exam
General: No acute distress
HEENT: Normocephalic, Atraumatic, EOMI, MMM
Respiratory: Clear to Auscultation bilaterally
Cardiac: Normal S1/S2, Regular Rate and Rhythm
GI: Soft, tender at the epigastrium, Nondistended, Normal Bowel Sounds
Extremities: No Clubbing, Cyanosis, or Edema
Msk: R shoulder in sling
Neuro: Nonfocal/Grossly Intact
Anticipated Discharge: 24 - 48 hours
Subjective/Interval History
-
Date of Service: June 16, 2025
Patient complains of severe abdominal pain. Denies nausea, denies vomiting. No fever. No chest pain.
Objective Data
-
Labs:
Laboratory Results
06/16/25 06/16/25
07:22 07:23
WBC 9.4
Hgb 13.1
Hct 39.4
Plt Count 148
Sodium 135
Potassium 4.0
Chloride 103
Carbon Dioxide 29
BUN 14
Creatinine 0.6 L
Glucose 77
Calcium 8.0 L
Total Bilirubin 1.5 H
AST 17
ALT 17
Alkaline Phosphatase 65
Vital Signs:
Vital Signs
Temp Pulse Resp BP Pulse Ox
98.5 F 73 17 126/73 99
06/16/25 07:45 06/16/25 07:45 06/16/25 07:45 06/16/25 07:45 06/16/25 07:45
I&O
06/15/25 06/16/25 06/17/25
06:59 06:59 06:59
Intake Total 1800 / 1800
Balance 1800 / 1800
[2025-06-16 10:30] VITALS: BMI 22.0
[2025-06-16 11:12] LABS: Glycohemoglobin (HgbA1c) 6.2 % (4.0-5.6)
[2025-06-16 12:06] LABS: Glucose - Point of Care 74 mg/dl (70-99)
--- NOTE | 2025-06-16 13:29 | W.PN.GI.CBS2 ---
Today's Communication / Plan
-
IVF, pain control
Assessment / Plan
-
Pt is a 64yo with hx PAF on Xarelto, basal cell CA, CVA, HTN, hyperlipidemia, visual loss, prior hernia repair, and prior pancreatitis. He had bouts of pancreatitis at age 20 then 30 and age 43. During bout in about 2004 when he was followed by
Dr. Connelly at [place]. There was concern biliary stricture with ERCP with complications requiring admission. Pt was well for many years after intervention. In review of chart pt was seen in ER in 2023 for groin pain and noted abnormal CT
with dilated pancreatic duct and air in gallbladder with suspected prior gastropancreatic stent and hx cyst in that area in 2024. He had follow up with Dr. Ordaz and sent to Dr. Feliz for evaluation with several follow up CT and MRI completed. He
had further follow up with Dr. Feliz in 2024. He proceeded to EUS 01/16/25 with duodenal diverticulum, dilated pancreatic duct in panc head, genu, body and tail of pancreas with panc duct up to 10mm with hyperechoic foci in panc head and body no
pathology in CBD or liver and patulous ampulla with possible mucin extrusion. He was then referred to Dr. García and Jeffery Feliz at [place]. He completed CT in February with stable pancreatic ductal dilatation and few para aortic calcifications
suggesting chronic pancreatitis with pancreatic tail atrophy and mild stool burden. He now had shoulder surgery with Dr. Mcghee 5 days ago with Oxycodone use and now presents with concern for pancreatitis.
-pancreatitis
-mild bili elevation of 2.3
-hx prior pancreatitis age [age] and 43 [address] Connelly with post procedure pancreatitis
-recent EUS x 2 for pancreatic duct dilation
-s/p shoulder surgery 06/10 with narcotic use
other med problems:
-PAF on Xarelto
-basal cell CA
- CVA
- HTN
-hyperlipidemia
- visual loss
-prior hernia repair
PLAN:
IVF
pain control
would not advance diet
conservative management, this patient has had extensive evaluation
Subjective
Subjective
Date of Service: June 16, 2025
Pt pain still there but responds to pain meds
Objective
Data Reviewed
Laboratory Data:
Laboratory Results
06/16/25 07:23
06/16/25 07:22
Laboratory Results
Total Bilirubin 1.5 mg/dl (0.2-1.3) H 06/16/25 07:22
AST 17 U/L (17-59) 06/16/25 07:22
ALT 17 U/L (0-50) 06/16/25 07:22
Alkaline Phosphatase 65 U/L (38-126) 06/16/25 07:22
Lipase > 4000 U/L (23-300) H* 06/15/25 11:21
Vital Signs and I&O:
Vital Signs
Temp Pulse Resp BP Pulse Ox
98.5 F 73 17 126/73 99
06/16/25 07:45 06/16/25 07:45 06/16/25 07:45 06/16/25 07:45 06/16/25 07:45
I&O
06/15/25 06/16/25 06/17/25
06:59 06:59 06:59
Intake Total 1800 / 1800
Balance 1800 / 1800
Physical Exam
Physical Exam
HEENT: Anicteric
GI: Soft and Tender (mildly tender but had received pain meds 30 min prior)
Neuro: Non Focal
--- NOTE | 2025-06-16 15:13 | CM ---
CM met with pt and spouse bedside
They reside in a 2SH with 3STE, full flight to 2nd floor where full bath is located
Pt is typically independent with his ADLs, no ADs or DMEs
Pt denied financial insecurities
PCP- Ezequiel Walton
Rx- [facility] [address]
Pt underwent R rotator cuff surgery [address] Mcghee
Plan to F/U with office to initiate rehab with ortho
No current VN or outpt therapy
Has been sleeping in [address] [place], [place] [id number] reclined post-op to easier transfers
Discharge Disposition- anticipate home no needs
[2025-06-16 15:32] VITALS: BP 134/69
[2025-06-16] MEDS: XARELTO 20 MG PO (17:06)
[2025-06-16] MEDS: LIPITOR 40 MG PO (17:07)
[2025-06-16] MEDS: DETROL LA 2 MG PO (17:07)
[2025-06-16] MEDS: FLOMAX 0.4 MG PO (17:07)
[2025-06-16] MEDS: TOPROL XL 25 MG PO (17:07)
[2025-06-16 18:09] LABS: Glucose - Point of Care 66 mg/dl (70-99)
[2025-06-16 18:32] LABS: Glucose - Point of Care 78 mg/dl (70-99)
[2025-06-16 19:42] VITALS: BP 127/69
[2025-06-16 20:33] LABS: Glucose - Point of Care 103 mg/dl (70-99)
[2025-06-16 22:34] LABS: Glucose - Point of Care 96 mg/dl (70-99)
[2025-06-16 23:30] VITALS: BP 126/63
[2025-06-17 00:02] LABS: Glucose - Point of Care 83 mg/dl (70-99)
[2025-06-17] MEDS: DILAUDID 1 MG IV ×6 (01:52→20:53)
[2025-06-17] MEDS: NSS 1000 IV ×2 (02:37→09:12)
[2025-06-17 04:14] LABS: Glucose - Point of Care 87 mg/dl (70-99)
[2025-06-17 06:01] LABS: Glucose - Point of Care 92 mg/dl (70-99)
[2025-06-17 07:20] VITALS: BP 125/76
--- NOTE | 2025-06-17 08:35 | W.PN.HOSP.TC ---
Today's Communication/Plan
-
see bold
Assessment / Plan
Assessment / Plan
HPI: 64 y/o male past medical history of A-fib on anticoagulation, pre-diabetes, hypertension, hyperlipidemia, BPH, and pancreatitis who presents with abdominal pain. Patient had right rotator cuff surgery 5 days ago. He started oxycodone for
shoulder pain the following day and subsequently developed epigastric pain on the next day, three days ago. He notes pain is similar to prior episodes of pancreatitis. He tried to manage at home by decreasing his oral intake but pain persisted.
He denies fevers, sweats or chills. He denies nausea, vomiting, diarrhea or constipation.
Assessment/plan:
Acute Recurrent Pancreatitis
Hx prior pancreatitis age [age] and 43 [address] Connelly with post procedure pancreatitis
Recent EUS x 2 for pancreatic duct dilation
-Possibly triggered by biliary spasms due to recent oxycodone
-Appreciate GI input, continue NPO/IVFs, pain meds
Pre-Diabetes with hypoglycemia
-HgbA1c 6.2, change IV fluids to D5 NS
-Monitor sugars and continue coverage insulin
Recent right shoulder surgery
- Orthopedic surgery removed his sutures in his right shoulder 06/17
Paroxysmal Atrial Fibrillation
-Continue Xarelto for anticoagulation
-Continue Metoprolol for rate control
Hyperlipidemia
-Continue atorvastatin
BPH
-Continue tamsulosin
DVT proph: Xarelto
Code Status: Full Code
Total time spent to see the patient on the floor, examine the patient, review data and lab results, discuss treatment plan with patient, nursing staff around 39 minutes.
Physical Exam
General: No acute distress
HEENT: Normocephalic, Atraumatic, EOMI, MMM
Respiratory: Clear to Auscultation bilaterally
Cardiac: Normal S1/S2, Regular Rate and Rhythm
GI: Soft, tender at the epigastrium, Nondistended, Normal Bowel Sounds
Extremities: No Clubbing, Cyanosis, or Edema
Msk: R shoulder in sling
Neuro: Nonfocal/Grossly Intact
Anticipated Discharge: > 48 hours
Subjective/Interval History
-
Date of Service: June 17, 2025
Patient reports his abdominal pain is worse today. Denies nausea, denies vomiting. No fever. No chest pain, no shortness of breath.
Objective Data
-
Labs:
Laboratory Results
06/17/25
06:26
Sodium Pending
Potassium Pending
Chloride Pending
Carbon Dioxide Pending
BUN Pending
Creatinine Pending
Glucose Pending
Calcium Pending
Total Bilirubin Pending
AST Pending
ALT Pending
Alkaline Phosphatase Pending
Vital Signs:
Vital Signs
Temp Pulse Resp BP Pulse Ox
98.8 F 78 14 126/63 95
06/16/25 23:30 06/16/25 23:30 06/16/25 23:30 06/16/25 23:30 06/16/25 23:30
I&O
06/16/25 06/17/25 06/18/25
06:59 06:59 06:59
Intake Total 1800 / 1800 2009 240 / 240
Balance 1800 / 1800 2009 240 / 240
[2025-06-17 08:59] LABS: ALT (SGPT) 18 U/L (0-50); AST (SGOT) 21 U/L (17-59); Albumin 3.1 g/dl (3.5-5.0); Alkaline Phosphatase 62 U/L (38-126); Blood Urea Nitrogen 10 mg/dl (9-20); Calcium 7.7 mg/dl (8.4-10.2); Carbon Dioxide 26 mmol/L (22-30); Chloride 105 mmol/L (98-107); Estimated Creatinine Clearance 119 ml/min; Glucose 84 mg/dl (70-99); Lipase 1911 U/L (23-300); Magnesium 1.8 mg/dl (1.6-2.3); Potassium 3.7 mmol/L (3.5-5.1); Sodium 135 mmol/L (135-145); Total Protein 5.5 g/dl (6.3-8.2); eGFR > 60.00
--- NOTE | 2025-06-17 09:07 | W.PN.UPDATE ---
Update Note
Progress Note Update
64-year-old male status post right shoulder arthroscopic surgery with Dr. Mcghee currently admitted for pancreatitis. He reports pain is well-controlled and utilizing his sling about his right shoulder.
Examination of the right upper extremity level the shoulder shows well-approximated surgical incisions x 4 of arthroscopic portals that are dry without drainage or surrounding erythema with visible nylon sutures. He is neuro vastly intact C5-T1.
Intact elbow wrist and hand range of motion.
Sutures were removed without complication and Steri-Strips applied. Wound care was reviewed. For an outpatient perspective I will coordinate a follow-up with Dr. Mcghee at approximately 4 to 5 weeks from his date of surgery for initiation of formal
physical therapy and clinical evaluation. Patient verified understanding
[2025-06-17 09:25] LABS: C-Reactive Protein 141.80 mg/L (0.0-10.00)
[2025-06-17 12:20] LABS: Glucose - Point of Care 69 mg/dl (70-99)
[2025-06-17 13:16] LABS: Glucose - Point of Care 84 mg/dl (70-99)
[2025-06-17] MEDS: D5/0.9% SODIUM CHLORIDE 1000 IV ×2 (13:28→20:43)
--- NOTE | 2025-06-17 13:52 | CM ---
Chart reviewed and manager rn case met with patient this am and patient is independent with adl's and ambulation, walking around room, plan is to home when stable no needs.
Plan; Home no needs when stable.
[2025-06-17 15:20] VITALS: BP 152/79
--- NOTE | 2025-06-17 16:14 | W.PN.GI.CBS2 ---
Today's Communication / Plan
-
cont current management
Assessment / Plan
-
Pt is a 64yo with hx PAF on Xarelto, basal cell CA, CVA, HTN, hyperlipidemia, visual loss, prior hernia repair, and prior pancreatitis. He had bouts of pancreatitis at age 20 then 30 and age 43. During bout in about 2004 when he was followed by
Dr. Connelly at [place]. There was concern biliary stricture with ERCP with complications requiring admission. Pt was well for many years after intervention. In review of chart pt was seen in ER in 2023 for groin pain and noted abnormal CT
with dilated pancreatic duct and air in gallbladder with suspected prior gastropancreatic stent and hx cyst in that area in 2024. He had follow up with Dr. Ordaz and sent to Dr. Feliz for evaluation with several follow up CT and MRI completed. He
had further follow up with Dr. Feliz in 2024. He proceeded to EUS 01/16/25 with duodenal diverticulum, dilated pancreatic duct in panc head, genu, body and tail of pancreas with panc duct up to 10mm with hyperechoic foci in panc head and body no
pathology in CBD or liver and patulous ampulla with possible mucin extrusion. He was then referred to Dr. García and Jeffery Feliz at [facility]. He completed CT in February with stable pancreatic ductal dilatation and few para aortic calcifications
suggesting chronic pancreatitis with pancreatic tail atrophy and mild stool burden. He now had shoulder surgery with Dr. Mcghee 5 days ago with Oxycodone use and now presents with concern for pancreatitis.
-pancreatitis
-mild bili elevation of 2.3
-hx prior pancreatitis age [age] and 43 [address] Connelly with post procedure pancreatitis
-recent EUS x 2 for pancreatic duct dilation
-s/p shoulder surgery 06/10 with narcotic use
other med problems:
-PAF on Xarelto
-basal cell CA
- CVA
- HTN
-hyperlipidemia
- visual loss
-prior hernia repair
Lipase did drop to 1900 from 4, 000
PLAN:
IVF
pain control
would not advance diet
conservative management, this patient has had extensive evaluation
will consider antispasmotic if not better
Subjective
Subjective
Date of Service: June 17, 2025
Pt still requiring pain meds regularly, same abd pain
Objective
Data Reviewed
Laboratory Data:
Laboratory Results
06/16/25 07:23
06/17/25 06:26
Laboratory Results
Phosphorus 2.6 mg/dl (2.5-4.5) 06/17/25 06:26
Magnesium 1.8 mg/dl (1.6-2.3) 06/17/25 06:26
Total Bilirubin 1.6 mg/dl (0.2-1.3) H 06/17/25 06:26
AST 21 U/L (17-59) 06/17/25 06:26
ALT 18 U/L (0-50) 06/17/25 06:26
Alkaline Phosphatase 62 U/L (38-126) 06/17/25 06:26
Lipase 1911 U/L (23-300) H* 06/17/25 06:26
Vital Signs and I&O:
Vital Signs
Temp Pulse Resp BP Pulse Ox
97.6 F 78 16 152/79 97
06/17/25 15:20 06/17/25 15:20 06/17/25 15:20 06/17/25 15:20 06/17/25 15:20
I&O
06/16/25 06/17/25 06/18/25
06:59 06:59 06:59
Intake Total 1799 240 / 240
Balance 1800 1800 2009 240 / 240
Physical Exam
Physical Exam
GI: Soft, Non Distended and Tender
[2025-06-17] MEDS: TOPROL XL 25 MG PO (17:11)
[2025-06-17] MEDS: FLOMAX 0.4 MG PO (17:11)
[2025-06-17] MEDS: LIPITOR 40 MG PO (17:11)
[2025-06-17] MEDS: XARELTO 20 MG PO (17:11)
[2025-06-17] MEDS: DETROL LA 2 MG PO (17:12)
[2025-06-17 17:54] LABS: Glucose - Point of Care 107 mg/dl (70-99)
[2025-06-17] MEDS: TYLENOL 650 MG PO (22:19)
[2025-06-17 23:40] VITALS: BP 120/76
[2025-06-18 00:08] LABS: Glucose - Point of Care 138 mg/dl (70-99)
[2025-06-18] MEDS: DILAUDID 1 MG IV ×5 (00:41→23:13)
[2025-06-18 03:07] LABS: Glucose - Point of Care 149 mg/dl (70-99)
[2025-06-18] MEDS: D5/0.9% SODIUM CHLORIDE 1000 IV ×3 (03:37→18:24)
[2025-06-18 05:52] LABS: Glucose - Point of Care 159 mg/dl (70-99)
[2025-06-18 07:00] VITALS: BP 127/75
--- NOTE | 2025-06-18 09:33 | W.PN.HOSP.TC ---
Today's Communication/Plan
-
Continue IV fluids, clear liquid diet today
Assessment / Plan
Assessment / Plan
HPI: 64 y/o male past medical history of A-fib on anticoagulation, pre-diabetes, hypertension, hyperlipidemia, BPH, and pancreatitis who presents with abdominal pain. Patient had right rotator cuff surgery 5 days ago. He started oxycodone for
shoulder pain the following day and subsequently developed epigastric pain on the next day, three days ago. He notes pain is similar to prior episodes of pancreatitis. He tried to manage at home by decreasing his oral intake but pain persisted.
He denies fevers, sweats or chills. He denies nausea, vomiting, diarrhea or constipation.
Assessment/plan:
Acute Recurrent Pancreatitis
Hx prior pancreatitis age [age] and 43 [address] Connelly with post procedure pancreatitis
Recent EUS x 2 for pancreatic duct dilation
-Possibly triggered by biliary spasms due to recent oxycodone
-Appreciate GI input, continue IVFs, pain meds
-Trial of clear liquid diet today
Pre-Diabetes with hypoglycemia
-HgbA1c 6.2, changed IV fluids to D5 NS
-Monitor sugars and continue coverage insulin
Recent right shoulder surgery
- Orthopedic surgery removed his sutures in his right shoulder 06/17
Paroxysmal Atrial Fibrillation
-Continue Xarelto for anticoagulation
-Continue Metoprolol for rate control
Hyperlipidemia
-Continue atorvastatin
BPH
-Continue tamsulosin
DVT proph: Xarelto
Code Status: Full Code
Total time spent to see the patient on the floor, examine the patient, review data and lab results, discuss treatment plan with patient, nursing staff around 37 minutes.
Physical Exam
General: No acute distress
HEENT: Normocephalic, Atraumatic, EOMI, MMM
Respiratory: Clear to Auscultation bilaterally
Cardiac: Normal S1/S2, Regular Rate and Rhythm
GI: Soft, tender at the epigastrium, Nondistended, Normal Bowel Sounds
Extremities: No Clubbing, Cyanosis, or Edema
Msk: R shoulder in sling
Neuro: Nonfocal/Grossly Intact
Anticipated Discharge: 24 - 48 hours
Subjective/Interval History
-
Date of Service: June 18, 2025
Patient reports improvement of abdominal pain. Denies nausea, denies vomiting. No fever.
Objective Data
-
Vital Signs:
Vital Signs
Temp Pulse Resp BP Pulse Ox
98.7 F 85 18 127/75 96
06/18/25 07:00 06/18/25 07:00 06/18/25 07:00 06/18/25 07:00 06/18/25 07:00
I&O
06/17/25 06/18/25 06/19/25
06:59 06:59 06:59
Intake Total 2009 600 / 600
Balance 2009 600 / 600
[2025-06-18 09:46] LABS: Lipase 1776 U/L (23-300)
--- NOTE | 2025-06-18 11:24 | CM ---
Chart reviewed and cyanide case hardener met with patient and plan is to home when stable, no needs.
Plan; Home no needs when stable.
[2025-06-18 11:40] LABS: Glucose - Point of Care 133 mg/dl (70-99)
[2025-06-18] MEDS: TYLENOL 650 MG PO (14:55)
[2025-06-18 15:00] VITALS: BP 145/89
[2025-06-18 16:18] LABS: Glucose - Point of Care 141 mg/dl (70-99)
[2025-06-18] MEDS: TOPROL XL 25 MG PO (18:25)
[2025-06-18] MEDS: LIPITOR 40 MG PO (18:25)
[2025-06-18] MEDS: DETROL LA 2 MG PO (18:26)
[2025-06-18] MEDS: FLOMAX 0.4 MG PO (18:26)
[2025-06-18] MEDS: XARELTO 20 MG PO (18:26)
[2025-06-18 23:23] VITALS: BP 139/76
[2025-06-19 00:40] LABS: Glucose - Point of Care 135 mg/dl (70-99)
[2025-06-19] MEDS: D5/0.9% SODIUM CHLORIDE 1000 IV ×3 (01:46→15:44)
[2025-06-19] MEDS: DILAUDID 1 MG IV ×2 (04:15→09:17)
[2025-06-19 07:21] LABS: Glucose - Point of Care 144 mg/dl (70-99)
[2025-06-19 07:25] VITALS: BP 131/78
--- NOTE | 2025-06-19 08:34 | W.PN.HOSP.TC ---
Today's Communication/Plan
-
Advance to full liquids today
Assessment / Plan
Assessment / Plan
HPI: 64 y/o male past medical history of A-fib on anticoagulation, pre-diabetes, hypertension, hyperlipidemia, BPH, and pancreatitis who presents with abdominal pain. Patient had right rotator cuff surgery 5 days ago. He started oxycodone for
shoulder pain the following day and subsequently developed epigastric pain on the next day, three days ago. He notes pain is similar to prior episodes of pancreatitis. He tried to manage at home by decreasing his oral intake but pain persisted.
He denies fevers, sweats or chills. He denies nausea, vomiting, diarrhea or constipation.
Assessment/plan:
Acute Recurrent Pancreatitis
Hx prior pancreatitis age [age] and 43 [address] intervention [address] Connelly with post procedure pancreatitis
Recent EUS x 2 for pancreatic duct dilation
-Possibly triggered by biliary spasms due to recent oxycodone
-Appreciate GI input, continue IVFs, pain meds
-Trial of full liquid diet today
Pre-Diabetes with hypoglycemia
-HgbA1c 6.2, changed IV fluids to D5 NS
-Monitor sugars and continue coverage insulin
Recent right shoulder surgery
- Orthopedic surgery removed his sutures in his right shoulder 06/17
Paroxysmal Atrial Fibrillation
-Continue Xarelto for anticoagulation
-Continue Metoprolol for rate control
Hyperlipidemia
-Continue atorvastatin
BPH
-Continue tamsulosin
DVT proph: Xarelto
Code Status: Full Code
Total time spent to see the patient on the floor, examine the patient, review data and lab results, discuss treatment plan with patient, nursing staff around 36 minutes.
Physical Exam
General: No acute distress
HEENT: Normocephalic, Atraumatic, EOMI, MMM
Respiratory: Clear to Auscultation bilaterally
Cardiac: Normal S1/S2, Regular Rate and Rhythm
GI: Soft, tender at the epigastrium, Nondistended, Normal Bowel Sounds
Extremities: No Clubbing, Cyanosis, or Edema
Msk: R shoulder in sling
Neuro: Nonfocal/Grossly Intact
Anticipated Discharge: Within 24 hours
Subjective/Interval History
-
Date of Service: June 19, 2025
Patient reports mild improvement in his abdominal pain. He tolerated his clear liquids, without worsening of his pain. Denies chest pain, denies shortness of breath. No fever, no vomiting.
Objective Data
-
Vital Signs:
Vital Signs
Temp Pulse Resp BP Pulse Ox
98.4 F 74 18 131/78 95
06/19/25 07:25 06/19/25 07:25 06/19/25 07:25 06/19/25 07:25 06/18/25 23:23
I&O
06/18/25 06/19/25 06/20/25
06:59 06:59 06:59
Intake Total 600 / 600 2900 / 2900
Balance 600 / 600 2900 / 2900
[2025-06-19 10:06] LABS: Lipase 1554 U/L (23-300)
--- NOTE | 2025-06-19 10:39 | CM ---
Home when stable, no needs.
Plan; Home when stable, no needs.
[2025-06-19 11:53] LABS: Glucose - Point of Care 136 mg/dl (70-99)
--- NOTE | 2025-06-19 12:40 | W.PN.GI.CBS2 ---
Today's Communication / Plan
-
Full liquid diet
Assessment / Plan
-
Pt is a 64yo with hx PAF on Xarelto, basal cell CA, CVA, HTN, hyperlipidemia, visual loss, prior hernia repair, and prior pancreatitis. He had bouts of pancreatitis at age 20 then 30 and age 43. During bout in about 2004 when he was followed by
Dr. Connelly at [place]. There was concern biliary stricture with ERCP with complications requiring admission. Pt was well for many years after intervention. In review of chart pt was seen in ER in 2023 for groin pain and noted abnormal CT
with dilated pancreatic duct and air in gallbladder with suspected prior gastropancreatic stent and hx cyst in that area in 2024. He had follow up with Dr. Ordaz and sent to Dr. Feliz for evaluation with several follow up CT and MRI completed. He
had further follow up with Dr. Feliz in 2024. He proceeded to EUS 01/16/25 with duodenal diverticulum, dilated pancreatic duct in panc head, genu, body and tail of pancreas with panc duct up to 10mm with hyperechoic foci in panc head and body no
pathology in CBD or liver and patulous ampulla with possible mucin extrusion. He was then referred to Dr. García and Jeffery Feliz at [place]. He completed CT in February with stable pancreatic ductal dilatation and few para aortic calcifications
suggesting chronic pancreatitis with pancreatic tail atrophy and mild stool burden. He now had shoulder surgery with Dr. Mcghee 5 days ago with Oxycodone use and now presents with concern for pancreatitis.
-pancreatitis
-mild bili elevation of 2.3
-hx prior pancreatitis age [age] and 43 [address] Connelly with post procedure pancreatitis
-recent EUS x 2 for pancreatic duct dilation
-s/p shoulder surgery 06/10 with narcotic use
other med problems:
-PAF on Xarelto
-basal cell CA
- CVA
- HTN
-hyperlipidemia
- visual loss
-prior hernia repair
PLAN:
Okay to advance to full liquid diet
pain control as per medical team
No need to trend daily lipase
Follow-up with Dr. Feliz after discharge
Total Time Spent with Patient (in minutes): 35
Subjective
Subjective
Date of Service: June 19, 2025
Feeling better. Pain med requirement frequency every 5-6 hours now. Tolerating clear liquid diet.
Objective
Data Reviewed
Laboratory Data:
Laboratory Results
06/16/25 07:23
06/17/25 06:26
Laboratory Results
Phosphorus 2.6 mg/dl (2.5-4.5) 06/17/25 06:26
Magnesium 1.8 mg/dl (1.6-2.3) 06/17/25 06:26
Total Bilirubin 1.6 mg/dl (0.2-1.3) H 06/17/25 06:26
AST 21 U/L (17-59) 06/17/25 06:26
ALT 18 U/L (0-50) 06/17/25 06:26
Alkaline Phosphatase 62 U/L (38-126) 06/17/25 06:26
Lipase 1554 U/L (23-300) H* 06/19/25 08:59
Vital Signs and I&O:
Vital Signs
Temp Pulse Resp BP Pulse Ox
98.4 F 74 18 131/78 95
06/19/25 07:25 06/19/25 07:25 06/19/25 07:25 06/19/25 07:25 06/18/25 23:23
I&O
06/18/25 06/19/25 06/20/25
06:59 06:59 06:59
Intake Total 600 / 600 2900 / 2900
Balance 600 / 600 2900 / 2900
Physical Exam
Physical Exam
GI: Soft, Non Distended and Tender (Mild epigastric tenderness on deep palpation)
[2025-06-19 15:24] VITALS: BP 140/79
[2025-06-19 16:49] LABS: Glucose - Point of Care 104 mg/dl (70-99)
[2025-06-19] MEDS: LIPITOR 40 MG PO (17:46)
[2025-06-19] MEDS: XARELTO 20 MG PO (17:46)
[2025-06-19] MEDS: TOPROL XL 25 MG PO (17:46)
[2025-06-19] MEDS: DETROL LA 2 MG PO (17:47)
[2025-06-19] MEDS: FLOMAX 0.4 MG PO (18:32)
[2025-06-19] MEDS: TYLENOL 650 MG PO (20:50)
[2025-06-19 21:30] LABS: Glucose - Point of Care 120 mg/dl (70-99)
[2025-06-19 23:00] VITALS: BP 127/60
[2025-06-20] MEDS: D5/0.9% SODIUM CHLORIDE 1000 IV ×2 (00:54→07:49)
[2025-06-20] MEDS: DILAUDID 1 MG IV (07:49)
[2025-06-20 08:00] LABS: Lipase 218 U/L (23-300)
[2025-06-20 08:31] LABS: Glucose - Point of Care 145 mg/dl (70-99)
[2025-06-20 11:00] VITALS: BP 147/81
[2025-06-20 12:22] LABS: Glucose - Point of Care 147 mg/dl (70-99)
--- NOTE | 2025-06-20 13:34 | W.PN.GI.CBS2 ---
Today's Communication / Plan
-
low fat low residual diet
Outpatient follow-up with Dr. Feliz
Assessment / Plan
-
Pt is a 64yo with hx PAF on Xarelto, basal cell CA, CVA, HTN, hyperlipidemia, visual loss, prior hernia repair, and prior pancreatitis. He had bouts of pancreatitis at age 20 then 30 and age 43. During bout in about 2004 when he was followed by
Dr. Connelly at [place]. There was concern biliary stricture with ERCP with complications requiring admission. Pt was well for many years after intervention. In review of chart pt was seen in ER in 2023 for groin pain and noted abnormal CT
with dilated pancreatic duct and air in gallbladder with suspected prior gastropancreatic stent and hx cyst in that area in 2024. He had follow up with Dr. Ordaz and sent to Dr. Feliz for evaluation with several follow up CT and MRI completed. He
had further follow up with Dr. Feliz in 2024. He proceeded to EUS 01/16/25 with duodenal diverticulum, dilated pancreatic duct in panc head, genu, body and tail of pancreas with panc duct up to 10mm with hyperechoic foci in panc head and body no
pathology in CBD or liver and patulous ampulla with possible mucin extrusion. He was then referred to Dr. García and Jeffery Feliz at [place]. He completed CT in February with stable pancreatic ductal dilatation and few para aortic calcifications
suggesting chronic pancreatitis with pancreatic tail atrophy and mild stool burden. He now had shoulder surgery with Dr. Mcghee 5 days ago with Oxycodone use and now presents with concern for pancreatitis.
-pancreatitis
-mild bili elevation of 2.3
-hx prior pancreatitis age [age] and 43 [address] intervention [address] Connelly with post procedure pancreatitis
-recent EUS x 2 for pancreatic duct dilation
-s/p shoulder surgery 06/10 with narcotic use
other med problems:
-PAF on Xarelto
-basal cell CA
- CVA
- HTN
-hyperlipidemia
- visual loss
-prior hernia repair
PLAN:
Okay to advance to low fat low residual diet
pain control as per medical team
No need to trend daily lipase
Okay to discharge if tolerating diet follow-up with Dr. Feliz after discharge.
Will sign off
Total Time Spent with Patient (in minutes): 35
Subjective
Subjective
Date of Service: June 20, 2025
Feeling better. Tolerating liquid diet
Objective
Data Reviewed
Laboratory Data:
Laboratory Results
06/16/25 07:23
06/17/25 06:26
Laboratory Results
Phosphorus 2.6 mg/dl (2.5-4.5) 06/17/25 06:26
Magnesium 1.8 mg/dl (1.6-2.3) 06/17/25 06:26
Total Bilirubin 1.6 mg/dl (0.2-1.3) H 06/17/25 06:26
AST 21 U/L (17-59) 06/17/25 06:26
ALT 18 U/L (0-50) 06/17/25 06:26
Alkaline Phosphatase 62 U/L (38-126) 06/17/25 06:26
Lipase 218 U/L (23-300) 06/20/25 06:49
Vital Signs and I&O:
Vital Signs
Temp Pulse Resp BP Pulse Ox
97.6 F 68 16 147/81 96
06/20/25 11:00 06/20/25 11:00 06/20/25 11:00 06/20/25 11:00 06/20/25 11:00
I&O
06/19/25 06/20/25 06/21/25
06:59 06:59 06:59
Intake Total 2900 / 2900 3720 / 3720
Balance 2900 / 2900 3720 / 3720
Physical Exam
Physical Exam
GI: Soft, Non Distended and Non Tender
--- NOTE | 2025-06-20 14:13 | W.PN.HOSP.TC ---
Today's Communication/Plan
-
Discharge today
Assessment / Plan
Assessment / Plan
HPI: 64 y/o male past medical history of A-fib on anticoagulation, pre-diabetes, hypertension, hyperlipidemia, BPH, and pancreatitis who presents with abdominal pain. Patient had right rotator cuff surgery 5 days ago. He started oxycodone for
shoulder pain the following day and subsequently developed epigastric pain on the next day, three days ago. He notes pain is similar to prior episodes of pancreatitis. He tried to manage at home by decreasing his oral intake but pain persisted.
He denies fevers, sweats or chills. He denies nausea, vomiting, diarrhea or constipation.
Assessment/plan:
Acute Recurrent Pancreatitis
Hx prior pancreatitis age [age] and 43 [address] Connelly with post procedure pancreatitis
Recent EUS x 2 for pancreatic duct dilation
-Possibly triggered by biliary spasms due to recent oxycodone
-Appreciate GI input
-Patient's abdominal pain resolved, he tolerated a low-fat diet, medically stable for discharge today
-Follow-up with PCP in 1 week, and GI as needed
Pre-Diabetes with hypoglycemia, likely due to recurrent pancreatitis
-HgbA1c 6.2
-Monitor sugars and continue coverage insulin
Recent right shoulder surgery
- Orthopedic surgery removed his sutures in his right shoulder 06/17
Paroxysmal Atrial Fibrillation
-Continue Xarelto for anticoagulation
-Continue Metoprolol for rate control
Hyperlipidemia
-Continue atorvastatin
BPH
-Continue tamsulosin
DVT proph: Xarelto
Code Status: Full Code
Physical Exam
General: No acute distress
HEENT: Normocephalic, Atraumatic, EOMI, MMM
Respiratory: Clear to Auscultation bilaterally
Cardiac: Normal S1/S2, Regular Rate and Rhythm
GI: Soft, nontender, Nondistended, Normal Bowel Sounds
Extremities: No Clubbing, Cyanosis, or Edema
Msk: R shoulder in sling
Neuro: Nonfocal/Grossly Intact
Anticipated Discharge: Today
Subjective/Interval History
-
Date of Service: June 20, 2025
Patient reports resolution of his abdominal pain. He tolerated a low-fat diet. Denies nausea, denies vomiting. He had a soft bowel movement. No fever, no chest pain, no shortness of breath.
Objective Data
-
Vital Signs:
Vital Signs
Temp Pulse Resp BP Pulse Ox
97.7 F 71 18 127/60 95
06/19/25 23:00 06/19/25 23:00 06/19/25 23:00 06/19/25 23:00 06/19/25 23:00
I&O
06/19/25 06/20/25 06/21/25
06:59 06:59 06:59
Intake Total 2900 / 2900 3720 / 3720
Balance 2900 / 2900 3720 / 3720
--- NOTE | 2025-06-20 14:16 | CM ---
Home no needs.
Plan; Home no needs.
--- NOTE | 2025-06-20 15:21 | W.DCSUMMARY ---
Discharge Summary
Discharge Data
Date of Admission: 06/15/25
Date of Discharge: 06/20/25
-
Pending Results: No
Hospital Course
Discharge diagnosis:
Acute Recurrent Pancreatitis
History of prior pancreatitis age [age] and 43 [address] Connelly with post procedure pancreatitis
Recent endoscopic ultrasound x 2 for pancreatic duct dilation
Pre-Diabetes with hypoglycemia, likely due to recurrent pancreatitis
Recent right shoulder surgery
Paroxysmal Atrial Fibrillation
Hyperlipidemia
Consults: GI
CT abdomen and pelvis:
Mild peripancreatic inflammatory changes suspicious for acute pancreatitis.
Pancreatic ductal dilatation and extrahepatic biliary tract/common bile duct dilatation again seen in comparison to most recent prior Abdomen CT. Consider MRI/MRCP for more complete evaluation.
Small left-sided urinary bladder diverticulum.
Hospital course:
64-year-old male with a past medical history of recurrent pancreatitis, prediabetes, atrial fibrillation on Xarelto, and recent right shoulder surgery was admitted for acute recurrent pancreatitis. Patient has had extensive workup in the past, with
no etiology for his recurrent pancreatitis. Patient was seen in conjunction with GI. He was treated with conservative management with IV fluids, bowel rest, pain meds. After 5 days, his abdominal pain resolved, his lipase normalized. He
tolerated a low-fat diet. He is medically stable for discharge. He needs to follow-up with his PCP in 1 week, and his usual GI doctor in the office as needed.
Disposition: Home self-care
Discharge plan: Required 37 minutes
Discharge Plan
-
Patient Disposition: Home (Routine Discharge)
Discharge Diagnosis/Procedures: Recurrent pancreatitis
Condition: Good
Diet: Low Fat and Low Cholesterol
Activity: As tolerated
Driving Restrictions: As prior to admission
Instructions: Low-fat diet
Referrals:
Deonte Feliz MD [Active, Gastroenterology] - in three to four weeks
Prescriptions:
New
hydromorphone [Dilaudid] 2 mg tablet
2 mg PO Q4H PRN (Reason: Pain) Qty: 20 0RF
ondansetron 8 mg tablet,disintegrating
8 mg PO Q8H PRN (Reason: nausea and vomiting) Qty: 20 0RF
Continued
metoprolol succinate 25 MG tablet extended release 24 hr
25 mg PO QPM
Xarelto 20 MG tablet
20 mg PO QPM
ascorbic acid (vitamin C) [Vitamin C] 500 MG tablet
1,000 mg PO DAILY
atorvastatin 40 MG tablet
40 mg PO QPM
tamsulosin 0.4 mg Capsule
0.4 mg PO QPM
solifenacin 5 mg Tablet
5 mg PO QPM
therapeutic multivitamin Tablet
1 tab PO DAILY
acetaminophen [Tylenol Extra Strength] 500 mg Tablet
500 mg PO Q6HPRN PRN (Reason: mild pain)
turmeric 400 mg Capsule
400 mg PO QPM
Discharge Orders:
Discharge Patient (As Directed); Ordered 06/20/25
Ordered By: Killian Bullock
Discharge Date and Time
Print Language: CYMRO
[2025-06-20 17:04] VITALS: BMI 23.5
--- NOTE | 2025-06-20 17:09 | W.PN.UPDATE ---
Update Note
Progress Note Update
Called to see patient for increased lower extremity swelling
Patient has been getting significant amounts of IV fluids for pancreatitis
Does have pitting edema to bilateral lower extremities
Patient also admits that his belly feels a bit full as well.
Weight on admission was 69.5 kg. He is now up to 74.2 kg. That is a 10 to 11 pound increase since admission.
I explained that he was continuing on his Xarelto and has missed no doses; and we see this quite commonly with high-volume IV fluids for pancreatitis. Explained that when he is home and mobilizing the fluid should improve. Also told him that if he
sits and at night puts his feet up (legs above the level of the heart) that that should expedite things. If he is no better by Sunday, then he should call his primary care physician for further evaluation.
reassured and is now willing to take patient home.
== END 2025-06-20 17:21 | disposition home or self-care (01) | DRG 440 ==
LOC: 4 WEST ACU 15:28
PROVIDERS: Nurse Practitioner Adult Health; Physician Assistant; Physician Assistant Medical; ADMITTING PHYSICIAN Hospitalist; ATTENDING PHYSICIAN Family Medicine; CONSULT PHYSICIAN Internal Medicine Gastroenterology; EMERGENCY PHYSICIAN Emergency Medicine; FAMILY PHYSICIAN Physician Assistant Medical
DX: K85.90 Acute pancreatitis without necrosis or infection, unspecified (principal); I48.0 Paroxysmal atrial fibrillation; R73.03 Prediabetes; N40.0 Benign prostatic hyperplasia without lower urinary tract symptoms; H54.7 Unspecified visual loss; K83.4 Spasm of sphincter of Oddi; E78.00 Pure hypercholesterolemia, unspecified; E86.0 Dehydration; I10 Essential (primary) hypertension; Z86.73 Personal history of transient ischemic attack (TIA), and cerebral infarction without residual deficits; Z79.01 Long term (current) use of anticoagulants; Z79.899 Other long term (current) drug therapy; Z85.828 Personal history of other malignant neoplasm of skin
CPT/HCPCS: 74177; 80053; 82248; 82962; 83036; 83615; 83690; 83735; 84100; 85025; 85027; 86140; 96361; 96374; 99285; Q9967